=== PATIENT | female | born 1955 | race Caucasian/White ===

== ENCOUNTER 2016-05-25 15:04 | Emergency (ER) | payer BC ==
[2016-05-25 15:26] VITALS: BP 145/82; PULSE 96; O2SAT 96
--- NOTE | 2016-05-25 16:03 | ERPHSYRPT ---
- History of Present Illness Time Seen by Provider: 05/25/16 15:12 Source: patient Patient Subjective Stated Complaint: PT REPORTS WAS DX WITH ALLERGIES LAST WEEK AT THE [facility] SHE IS STILL COUGHING UP YELLOW SPUTUM AT TIMES ET HAS A SALTY BAD TASTE IN HER MOUTH-REPORTS HEADACHE THAT IS NORMAL FOR HER Triage Nursing Assessment: PT PINK WARM ET DRY-LUNGS DIMINISHED NO RETRACTIONS NOTED-PT TALKATIVE WITH EASE-NO COUGH NOTED DURING TRIAGE Physician History: CC: sinus drng/cough HX: 61 y/o smoker who is a patient of Dr Figueroa. She has cough, sinus drng, salty taste in her mouth for a week. Not better with allergy treatment. No fever. Timing/Duration: week(s) (1) Allergies/Adverse Reactions: No Known Drug Allergies Allergy (Verified 05/25/16 15:26) Home Medications: Alprazolam 0.5 mg PO TID 05/25/16 [History] Escitalopram Oxalate [Lexapro] 20 mg PO DAILY 05/25/16 [History] Ezetimibe 10 mg [Zetia 10 MG] 10 mg PO DAILY 05/25/16 [History] Hx Tetanus, Diphtheria Vaccination/Date Given: No Hx Influenza Vaccination/Date Given: Yes (2015) Hx Pneumococcal Vaccination/Date Given: No Immunizations Up to Date: Yes - Review of Systems Constitutional: No Fever, No Chills Eyes: No Symptoms Ears, Nose, & Throat: Nose Congestion, Sinus Drainage Respiratory: Cough Abdominal/Gastrointestinal: No Vomiting Skin: No Rash Neurological: No Headache - Past Medical History Pertinent Past Medical History: Yes Neurological History: Migraines ENT History: No Pertinent History Cardiac History: High Cholesterol Respiratory History: Bronchitis Endocrine Medical History: No Pertinent History Musculoskeletal History: No Pertinent History GI Medical History: Hemorrhoids History: No Pertinent History Psycho-Social History: Anxiety, Depression Female Reproductive Disorders: Abnormal Uterine Bleeding - Past Surgical History Past Surgical History: Yes Neuro Surgical History: No Pertinent History Cardiac: No Pertinent History Respiratory: No Pertinent History Gastrointestinal: No Pertinent History Genitourinary: No Pertinent History Musculoskeletal: No Pertinent History Female Surgical History: Hysterectomy Other Surgical History: d & c - Social History Smoking Status: Current every day smoker How long have you smoked: 40 YEARS Exposure to second hand smoke: Yes Drug Use: none Patient Lives Alone: No - Female History Hx Now: No - Nursing Vital Signs Nursing Vital Signs: Initial Vital Signs Temperature 98.2 F Temperature Source Oral Pulse Rate 96 Respiratory Rate 22 Blood Pressure [Right Arm] 145/82 Pain Intensity 8 - Physical Exam General Appearance: alert Eye Exam: PERRL/EOMI Ears, Nose, Throat Exam: TMs normal, pharyngeal erythema, other (bilateral maxiallary sinus tenderness) Neck Exam: normal inspection, non-tender, supple Respiratory Exam: normal breath sounds Cardiovascular Exam: regular rate/rhythm Gastrointestinal/Abdomen Exam: soft, No tenderness, No distention Extremity Exam: normal inspection, normal range of motion Neurologic Exam: alert, oriented x 3, cooperative, sensation nml, No motor deficits Skin Exam: warm, dry, No rash SpO2 Interpretation: normal SpO2: 96 Oxygen Delivery: Room Air - Course Nursing assessment & vital signs reviewed: Yes - Progress Progress Note: 05/25/16 16:01 Will Rx as sinusitis. Advise cxr if not better in one week. Inst given. Counseled pt/family regarding: diagnosis, need for follow-up - Departure Time of Disposition: 16:02 Departure Disposition: Home Clinical Impression: Acute sinusitis Qualifiers: Sinusitis location: maxillary Recurrence: non-recurrent Qualified Code(s): J01.00 - Acute maxillary sinusitis, unspecified Condition: Stable Critical Care Time: No Referrals: LUIS E FIGUEROA [Primary Care Provider] - Instructions: Cough -- Adult, Sinusitis Additional Instructions: Rx ceftin. Rx albuterol. Follow up with Dr Figueroa if not better in one week. Avoid smoke exposure. Prescriptions: Albuterol Sulfate [Albuterol Sulfate Hfa] 2 puff IH Q4-6HPRN PRN #1 [id number] PRN Reason: cough or wheeze Cefuroxime Axetil 500 mg [Ceftin 500 mg] 500 mg PO BID #20 tablet
== END 2016-05-25 16:13 | disposition home or self-care (01) ==
LOC: ED 15:04
DX: J01.00 Acute maxillary sinusitis, unspecified (principal)
CPT/HCPCS: 99281; 99283

== ENCOUNTER 2016-10-25 08:56 | Emergency (ER) | payer BC ==
[2016-10-25 09:03] VITALS: BP 151/89; PULSE 93; O2SAT 96
[2016-10-25] MEDS ORDERED: Rocephin 1000 MG INJ IM ONE (09:07)
[2016-10-25] MEDS ORDERED: Rocephin 1000 MG INJ ONE (09:13)
[2016-10-25] MEDS ORDERED: XYLOCAINE 1% HCL 20 ML MDV ONE (09:14)
--- NOTE | 2016-10-25 09:14 | ERPHSYRPT ---
- History of Present Illness Time Seen by Provider: 10/25/16 09:08 Source: patient Exam Limitations: no limitations Patient Subjective Stated Complaint: pt reports headache-bilateral ear ache- productive cough with clear to yellow sputum-dry mouth Triage Nursing Assessment: pt pink warm et dry-wet cough noted-lungs diminished- no retractions-resp nonlabored-pupils reactive Physician History: 61-year-old female came to the emergency room with complaining of 5 days history of sinus congestion, right-sided ear pain, right-sided occipital headache, dry mouth, pharyngeal congestion. She denies any fever, but complaining of chills last night. She visited her primary care physician 3 days ago and was given some type of shot for allergies. Timing/Duration: gradual onset ENT Location: ear (R) Prearrival Treatment: prescription meds Associated Symptoms: ear pain (R), jaw pain, nasal congestion/drainage, sinus infection, sore throat Allergies/Adverse Reactions: No Known Drug Allergies Allergy (Verified 10/25/16 08:57) Home Medications: Alprazolam 0.5 mg PO TID 05/25/16 [History] Escitalopram Oxalate [Lexapro] 20 mg PO DAILY 05/25/16 [History] Ezetimibe 10 mg [Zetia 10 MG] 10 mg PO DAILY 05/25/16 [History] Hx Tetanus, Diphtheria Vaccination/Date Given: No Hx Influenza Vaccination/Date Given: Yes (2015) Hx Pneumococcal Vaccination/Date Given: No Immunizations Up to Date: Yes - Review of Systems Constitutional: Chills Ears, Nose, & Throat: Nose Congestion, Throat Pain, Hoarse Respiratory: Cough Cardiac: No Symptoms Abdominal/Gastrointestinal: No Symptoms Genitourinary Symptoms: No Symptoms Musculoskeletal: No Symptoms - Past Medical History Pertinent Past Medical History: Yes Neurological History: Migraines ENT History: No Pertinent History Cardiac History: High Cholesterol Respiratory History: Bronchitis Endocrine Medical History: No Pertinent History Musculoskeletal History: No Pertinent History GI Medical History: Hemorrhoids History: No Pertinent History Psycho-Social History: Anxiety, Depression Female Reproductive Disorders: Abnormal Uterine Bleeding - Past Surgical History Past Surgical History: Yes Neuro Surgical History: No Pertinent History Cardiac: No Pertinent History Respiratory: No Pertinent History Gastrointestinal: No Pertinent History Genitourinary: No Pertinent History Musculoskeletal: No Pertinent History Female Surgical History: Hysterectomy Other Surgical History: d & c - Social History Smoking Status: Current every day smoker How long have you smoked: 40 YEARS Exposure to second hand smoke: No Drug Use: none Patient Lives Alone: No - Female History Hx Last Menstrual Period: hysterectomy Hx Now: No - Nursing Vital Signs Nursing Vital Signs: Initial Vital Signs Temperature 97.7 F 10/25/16 08:58 Pulse Rate 93 H 10/25/16 08:58 Respiratory Rate 20 10/25/16 08:58 Blood Pressure 151/89 10/25/16 08:58 O2 Sat by Pulse Oximetry 96 10/25/16 08:58 Pain Scale Pain Intensity 9 - Physical Exam General Appearance: no apparent distress Eye Exam: bilateral eye: normal inspection, PERRL, EOMI Ear Exam: bilateral ear: auricle normal, TM normal Nasal Exam: normal inspection, sinus tenderness Throat Exam: moist mucus membranes Neck Exam: normal inspection Cardiovascular/Respiratory Exam: chest non-tender Abdominal Exam: non-tender Neurologic Exam: alert, oriented x 3 Skin Exam: normal color SpO2 Interpretation: normal SpO2: 96 Oxygen Delivery: Room Air - Course Nursing assessment & vital signs reviewed: Yes Ordered Tests: Medication Summary Discontinued Medications Generic Name Dose Route Start Last Admin Trade Name Freq PRN Reason Stop Dose Admin Ceftriaxone Sodium 1,000 mg 10/25/16 09:07 Rocephin 1000 Mg Inj IM 10/25/16 09:08 STAT ONE - Progress Progress: unchanged Counseled pt/family regarding: diagnosis, need for follow-up - Departure Time of Disposition: 09:14 Departure Disposition: Home Clinical Impression: Acute sinusitis Qualifiers: Sinusitis location: pansinusitis Recurrence: recurrent Qualified Code(s): J01.41 - Acute recurrent pansinusitis Condition: Stable Critical Care Time: No Referrals: LUIS E FIGUEROA [Primary Care Provider] - Instructions: Sinusitis Additional Instructions: UPPER RESPIRATORY INFECTIONS 1. The following suggestions can aid in recovery and to minimize symptoms: A. Increase fluid intake. B. Acetaminophen or Ibuprofen as directed. C. Avoid smoking environments as this will increase the risk of developing pneumonia. D. For children, may use a cool mist vaporizer in the child's room. 2. Contact your Family Physician if you note: A. Persisten fever >103 for more than 3 days B. Breathing difficulty C. Productive cough of yellow/green sputum D. Illness greater than 7 days E. Persistent vomiting F. Stiff neck Please follow the instructions given to you. Please take your medication as prescribed if given. If symptoms recur or get worse, come back to the emergency room if you cannot reach your primary care physician, or call your primary care physician for an appointment. Again if your symptoms get worse, come back to the emergency room. Thanks for visiting emergency room, and let us take care of you. Prescriptions: Azithromycin [Zithromax Tri-Junior 500 mg] 500 mg PO DAILY #3 tablet
== END 2016-10-25 09:30 | disposition home or self-care (01) ==
LOC: ED 08:56
DX: J01.41 Acute recurrent pansinusitis (principal)
CPT/HCPCS: 96372; 99284; J0696

== ENCOUNTER 2017-01-03 16:19 | Emergency (ER) | payer BC ==
--- NOTE | 2017-01-03 16:54 | ERPHSYRPT ---
- History of Present Illness Time Seen by Provider: 01/03/17 16:50 Source: patient Exam Limitations: no limitations Patient Subjective Stated Complaint: states tongue swelling up, states things taste salty, sore4 throat hurts to swallow lips swollen also Triage Nursing Assessment: pt alert and oriented x3, behavior appropriate for age, gait is steady , ambulates well, little buds swollen up on tongue, throat is red , pulse sequal bialteral radius, lung sounds clear diminished, skin warm dry and intact. Physician History: mild ache and painful swallowing and tongue for months, no fever, hx smoking, no drooling, speech fluent, no shortness of breath or stridor Allergies/Adverse Reactions: No Known Drug Allergies Allergy (Verified 10/25/16 08:57) Home Medications: Alprazolam 0.5 mg PO TID 05/25/16 [History] Escitalopram Oxalate [Lexapro] 20 mg PO DAILY 05/25/16 [History] Ezetimibe 10 mg [Zetia 10 MG] 10 mg PO DAILY 05/25/16 [History] Hx Tetanus, Diphtheria Vaccination/Date Given: Yes Hx Influenza Vaccination/Date Given: No Hx Pneumococcal Vaccination/Date Given: No Immunizations Up to Date: Yes - Review of Systems Constitutional: No Fever Eyes: No Symptoms Ears, Nose, & Throat: Mouth Pain, Throat Pain, No Throat Swelling, No Hoarse, No Stridor Respiratory: No Symptoms Skin: No Symptoms Neurological: No Symptoms - Past Medical History Pertinent Past Medical History: Yes Neurological History: Migraines ENT History: No Pertinent History Cardiac History: High Cholesterol Respiratory History: Bronchitis Endocrine Medical History: No Pertinent History Musculoskeletal History: No Pertinent History GI Medical History: Hemorrhoids History: No Pertinent History Psycho-Social History: Anxiety, Depression Female Reproductive Disorders: Abnormal Uterine Bleeding - Past Surgical History Past Surgical History: Yes Neuro Surgical History: No Pertinent History Cardiac: No Pertinent History Respiratory: No Pertinent History Gastrointestinal: No Pertinent History Genitourinary: No Pertinent History Musculoskeletal: No Pertinent History Female Surgical History: Hysterectomy Other Surgical History: d & c - Social History Smoking Status: Current every day smoker How long have you smoked: 40 YEARS Exposure to second hand smoke: No Drug Use: none Patient Lives Alone: No - Female History Hx Now: No - Nursing Vital Signs Nursing Vital Signs: Initial Vital Signs Temperature 98.4 F 01/03/17 16:20 Pulse Rate 102 H 01/03/17 16:20 Respiratory Rate 20 01/03/17 16:20 Blood Pressure 134/85 01/03/17 16:20 O2 Sat by Pulse Oximetry 95 01/03/17 16:20 Pain Scale Pain Intensity 9 - Physical Exam General Appearance: no apparent distress Eye Exam: PERRL/EOMI, eyes nml inspection Ears, Nose, Throat Exam: moist mucous membranes, pharyngeal erythema Neck Exam: normal inspection Respiratory Exam: No respiratory distress Neurologic Exam: alert, oriented x 3, cooperative Skin Exam: warm, dry SpO2: 95 Oxygen Delivery: Room Air - Course Nursing assessment & vital signs reviewed: Yes - Progress Progress: unchanged Progress Note: 01/03/17 16:52 differential d/w pt as cancer Discussed with : Roderick Will see patient in: office Counseled pt/family regarding: need for follow-up, smoking cessation - Departure Time of Disposition: 16:53 Departure Disposition: Home Clinical Impression: Sore throat Condition: Stable Critical Care Time: No Referrals: LUIS E FIGUEROA [Primary Care Provider] - Additional Instructions: pen vk, motrin, oral fluids, see your doctor, return if worse
[2017-01-03 17:07] VITALS: BP 111/80; PULSE 90; O2SAT 94
== END 2017-01-03 17:14 | disposition home or self-care (01) ==
LOC: ED 16:19
DX: J02.9 Acute pharyngitis, unspecified (principal); E78.00 Pure hypercholesterolemia, unspecified
CPT/HCPCS: 99281

== ENCOUNTER 2021-01-25 12:08 | Emergency (ER) | payer MEDICARE ==
[2021-01-25 13:20] LABS: Absolute Neutrophil Ct (ANC) 5.26 (1.4-6.9); BASOPHIL % 0.1 % (0.0-0.4); Basophil (Absolute #) 0.01 (0-0.4); Eosinophil % 1.6 % (0.00-5.0); Eosinophil (Absolute #) 0.13 (0-0.5); Hematocrit 49.4 % (35-47); Lymphocyte (Absolute #) 2.31 (1.0-4.6); Lymphocytes % 28.3 % (24.0-44.0); Mean Cell Volume 97.8 fl (78-100); Mean Corpuscular Hemoglobin 31.7 pg (26-32); Mean Corpuscular Hgb Concent. 32.4 g/dl (32-36); Mean Platelet Volume 8.9 fl (7.5-11.0); Monocyte (Absolute #) 0.44 (0.0-1.3); Monocytes % 5.4 % (0.0-12.0); Neutrophil % 64.6 % (36.0-66.0); Platelet Count 282 K/mm3 (150-450); Red Blood Count 5.05 M/mm3 (4.1-5.4); Red Cell Distribution Width 13.4 % (11.5-14.0); White Blood Count 8.2 K/mm3 (4.0-10.5)
[2021-01-25] MEDS ORDERED: NORCO 5/325 MG ONE (13:30)
[2021-01-25] MEDS: NORCO 5/325 MG PO ONE ×2 (13:31→13:34)
[2021-01-25 13:34] LABS: ALBUMIN 4.5 g/dL (3.5-5.0); ALKALINE PHOSPHATASE 89 U/L (38-126); ANION GAP 13.2 MEQ/L (5-15); BLOOD UREA NITROGEN 23 mg/dL (7-17); CHLORIDE 98 mmol/L (98-107); Calcium 9.4 mg/dL (8.4-10.2); Carbon Dioxide 30 mmol/L (22-30); Creatinine 1 0.78 mg/dL (0.52-1.04); EST GLOMERULAR FILTRATION RATE > 60.0 ML/MIN; Glucose 150 mg/dL (74-106); LIPASE 104 U/L (23-300); Potassium 4.2 mmol/L (3.5-5.1); SGOT/AST 27 U/L (14-36); SGPT/ALT 23 U/L (0-35); SODIUM 137 mmol/L (137-145); Total Protein 7.4 g/dL (6.3-8.2)
--- NOTE | 2021-01-25 13:49 | ERPHSYRPT ---
- History of Present Illness Time Seen by Provider: 01/25/21 12:11 Historian: patient Exam Limitations: no limitations Patient Subjective Stated Complaint: Abdominal/back pain Triage Nursing Assessment: Patient ambulated back to ED and transferred self to bed. Patient A+O X3. Patient's skin pink, warm and dry. Patient complains of abdominal pain and mid back pain that started yesterday. Patient denies N/V or diarrhea. Patient states she has been coughing recently and currently being tx for URI. Physician History: 65 years old female presented in the ER with chief complaint of lower abdominal pain since yesterday, initially intermittent and now constant, moderate intensity, dull cramping, without any significant aggravating or relieving factors and no associated nausea vomiting diarrhea or constipation. No fever or chills reported. She has been recently treated for bronchitis with doxycycline. Timing/Duration: yesterday, constant, gradual onset, worse Activities at Onset: rest Quality: aching, cramping Abdominal Pain Onset Location: RLQ, LLQ, periumbilical Pain Radiation: no radiation Severity of Pain-Max: moderate Severity of Pain-Current: mild Modifying Factors: Improves With: nothing Associated Symptoms: denies symptoms Previous symptoms: no prior history Allergies/Adverse Reactions: No Known Drug Allergies Allergy (Verified 01/25/21 12:25) Home Medications: ALPRAZolam [Alprazolam] 0.5 mg PO TID 05/25/16 [History] Escitalopram Oxalate [Lexapro] 20 mg PO DAILY 05/25/16 [History] Ezetimibe 10 mg [Zetia 10 MG] 10 mg PO DAILY 05/25/16 [History] Hx Tetanus, Diphtheria Vaccination/Date Given: Yes Hx Influenza Vaccination/Date Given: Yes Hx Pneumococcal Vaccination/Date Given: No Immunizations Up to Date: Yes Travel Risk - International Travel Have you traveled outside of the country in past 3 weeks: No - Coronavirus Screening Are you exhibiting any of the following symptoms?: No Close contact with a COVID-19 positive Pt in past 14-21 Days: No - Vaccine Status Have you recieved a Covid-19 vaccination: Yes 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 - Vaccination Dates Date of 2cond Vaccination (if applicable): April 2020 - Review of Systems Constitutional: No Symptoms Eyes: No Symptoms Ears, Nose, & Throat: No Symptoms Respiratory: Cough Cardiac: No Symptoms Abdominal/Gastrointestinal: Abdominal Pain Genitourinary Symptoms: No Symptoms Musculoskeletal: Back Pain (Chronic) Skin: No Symptoms Neurological: No Symptoms Psychological: No Symptoms Endocrine: No Symptoms Hematologic/Lymphatic: No Symptoms Immunological/Allergic: No Symptoms - Past Medical History Pertinent Past Medical History: Yes Neurological History: Migraines ENT History: No Pertinent History Cardiac History: High Cholesterol Respiratory History: Bronchitis Endocrine Medical History: No Pertinent History Musculoskeletal History: No Pertinent History GI Medical History: Hemorrhoids History: No Pertinent History Psycho-Social History: Anxiety, Depression Female Reproductive Disorders: Abnormal Uterine Bleeding - Past Surgical History Past Surgical History: Yes Neuro Surgical History: No Pertinent History Cardiac: No Pertinent History Respiratory: No Pertinent History Gastrointestinal: No Pertinent History Genitourinary: No Pertinent History Musculoskeletal: No Pertinent History Female Surgical History: Hysterectomy Other Surgical History: d & c - Social History Smoking Status: Current every day smoker How long have you smoked: 40 YEARS Exposure to second hand smoke: No Drug Use: none Patient Lives Alone: No - Female History Hx Now: No - Nursing Vital Signs Nursing Vital Signs: Initial Vital Signs Temperature 97.9 F 01/25/21 12:28 Pulse Rate 95 H 01/25/21 12:28 Respiratory Rate 18 01/25/21 12:28 Blood Pressure 162/99 01/25/21 12:28 O2 Sat by Pulse Oximetry 94 L 01/25/21 12:28 Pain Scale Pain Intensity 4 - Physical Exam General Appearance: no apparent distress, alert Eye Exam: PERRL/EOMI, eyes nml inspection Ears, Nose, Throat Exam: normal ENT inspection, TMs normal, pharynx normal, moist mucous membranes Neck Exam: normal inspection, non-tender, supple, full range of motion Respiratory Exam: normal breath sounds, lungs clear Cardiovascular Exam: regular rate/rhythm, normal heart sounds Gastrointestinal/Abdomen Exam: soft, normal bowel sounds, tenderness (Lower abdomen/periumbilical area with no rebound tenderness or guarding.) Back Exam: normal inspection, normal range of motion, No CVA tenderness Extremity Exam: normal inspection, normal range of motion Neurologic Exam: alert, oriented x 3, cooperative Skin Exam: normal color SpO2 Interpretation: normal SpO2: 93 O2 Delivery: Room Air Ordered Tests: Active Orders 24 hr Category Date Time Status IV Insertion STAT Care 01/25/21 12:30 Active ABDOMEN AND PELVIS W/0 CONTRAS [CT] Stat Exams 01/25/21 13:22 Ordered CBC W DIFF Stat Lab 01/25/21 12:20 Completed CMP Stat Lab 01/25/21 12:20 Completed LIPASE Stat Lab 01/25/21 12:20 Completed UA W/RFX UR CULTURE Stat Lab 01/25/21 12:31 Received Medication Summary Discontinued Medications Generic Name Dose Route Start Last Admin Trade Name Freq PRN Reason Stop Dose Admin Hydrocodone Bitart/Acetaminophen 1 tab 01/25/21 13:22 01/25/21 13:34 Hydrocodone/Apap 5/325 Mg Tablet PO 01/25/21 13:23 Not Given STAT ONE Hydrocodone Bitart/Acetaminophen Confirm 01/25/21 13:30 Hydrocodone/Apap 5/325 Mg Tablet Administered 01/25/21 13:31 Dose 1 tab .ROUTE .STK-MED ONE Lab/Rad Data: Laboratory Result Diagrams 01/25/21 12:20 01/25/21 12:20 Laboratory Results 01/25/21 01/25/21 Range/Units 12:20 12:20 WBC 8.2 (4.0-10.5) K/mm3 RBC 5.05 (4.1-5.4) M/mm3 Hgb 16.0 (12.0-16.0) gm/dl Hct 49.4 H (35-47) % MCV 97.8 (78-100) fl MCH 31.7 (26-32) pg MCHC 32.4 (32-36) g/dl RDW 13.4 (11.5-14.0) % Plt Count 282 (150-450) K/mm3 MPV 8.9 (7.5-11.0) fl Gran % 64.6 (36.0-66.0) % Eos # (Auto) 0.13 (0-0.5) Absolute Lymphs (auto) 2.31 (1.0-4.6) Absolute Monos (auto) 0.44 (0.0-1.3) Lymphocytes % 28.3 (24.0-44.0) % Monocytes % 5.4 (0.0-12.0) % Eosinophils % 1.6 (0.00-5.0) % Basophils % 0.1 (0.0-0.4) % Absolute Granulocytes 5.26 (1.4-6.9) Basophils # 0.01 (0-0.4) Sodium 137 (137-145) mmol/L Potassium 4.2 (3.5-5.1) mmol/L Chloride 98 (98-107) mmol/L Carbon Dioxide 30 (22-30) mmol/L Anion Gap 13.2 (5-15) MEQ/L BUN 23 H (7-17) mg/dL Creatinine 0.78 (0.52-1.04) mg/dL Estimated GFR > 60.0 ML/MIN Glucose 150 H (74-106) mg/dL Calcium 9.4 (8.4-10.2) mg/dL Total Bilirubin 0.40 (0.2-1.3) mg/dL AST 27 (14-36) U/L ALT 23 (0-35) U/L Alkaline Phosphatase 89 (38-126) U/L Serum Total Protein 7.4 (6.3-8.2) g/dL Albumin 4.5 (3.5-5.0) g/dL Lipase 104 (23-300) U/L - Progress Progress: improved Progress Note: 01/25/21 15:58 She is given symptomatic treatment for pain, on reevaluation her pain is almost completely resolved. Negative acute abdomen work-up including CT abdomen pe lvis. Tylenol/ibuprofen as needed. Outpatient follow-up. Discussed signs symptoms of worsening needing return to ER which she seems understanding. Stable for discharge. Counseled pt/family regarding: lab results, diagnosis, need for follow-up, rad results, smoking cessation - Departure Departure Disposition: Home Clinical Impression: Lower abdominal pain Condition: Stable Critical Care Time: No Referrals: TORRIE MURPHY NP [Primary Care Provider] - Follow up/PCP as directed (In 2 days for reevaluation) Instructions: Acute Abdomen (Belly Pain), Adult (DC) Additional Instructions: Take Tylenol/ibuprofen as needed. Follow-up with primary care for reevaluation. Return to ER for any worsening.
[2021-01-25 15:08] VITALS: O2SAT 93
[2021-01-25 16:14] VITALS: BP 140/96; PULSE 80
[2021-01-25 16:30] LABS: Appearance CLEAR (CLEAR); Bilirubin NEGATIVE (NEGATIVE); Blood SMALL Ery/ul (0-5); Glucose NEGATIVE (NEGATIVE); Ketones NEGATIVE (NEGATIVE); Leukocyte Esterase NEGATIVE (NEGATIVE); Mucus SLIGHT /HPF (NEGATIVE); Nitrite NEGATIVE (NEGATIVE); Protein,Urine Dip NEGATIVE (Negative); Specific Gravity 1.005 (1.005-1.025); Urobilinogen NEGATIVE mg/dL (0-1)
--- NOTE | 2021-01-25 19:32 | XRAY ---
Indication: Abdomen pain 2 days. Multiple contiguous axial images obtained through the abdomen and pelvis without contrast. Comparison: None. Lung bases demonstrates pulmonary emphysema, minimal scattered fibrosis/scarring, and tiny left lower lobe calcified granuloma. No infiltrate or effusion. Heart not enlarged. Small hiatal hernia. Stomach is mildly distended with food/fluid. Stomach and bowel loops appear nonobstructed. Normal appendix. Scattered sigmoid diverticulosis without diverticulitis. Gallbladder contracted without stones. Hysterectomy reported. No free fluid/air. Remaining liver, pancreas, spleen, adrenal glands, kidneys, ureters, and bladder are unremarkable for noncontrast exam. Moderate scattered aortoiliac calcifications without AAA. Osseous structures intact with minimal 1-2 mm L4 anterolisthesis and 1.5 cm L1 vertebral hemangioma. Impression: 1. Pulmonary emphysema, old granulomatous disease, small hiatal hernia, sigmoid diverticulosis, arteriosclerotic disease, and chronic bony findings. 2. Remaining CT abdomen/pelvis without contrast exam is negative. Comment: Preliminary interpretation made by [facility]. No critical discrepancy.
== END 2021-01-25 16:20 | disposition home or self-care (01) ==
LOC: ED 12:08
DX: R10.30 Lower abdominal pain, unspecified (principal); E78.5 Hyperlipidemia, unspecified; Z72.0 Tobacco use
CPT/HCPCS: 36000; 36415; 74176; 80053; 81001; 83690; 85025; 99284; A9270-GY

== ENCOUNTER 2022-01-12 10:33 | Observation (INO) | payer MEDICARE ==
[2022-01-12] MEDS ORDERED: PROVENTIL 2.5 MG/3 ML NEB IH ONE ×2 (11:14→11:59)
[2022-01-12] MEDS ORDERED: solu-MEDROL 125 MG, Sterile H2O 10 ml 2 ML IV ONE ×2 (11:14)
[2022-01-12] MEDS ORDERED: ROCEPHIN 2 Gm-D5w 50ML BAG** 2 G/50 ML IVPB IV STA (11:20)
[2022-01-12] MEDS ORDERED: Zithromax 500 MG/ 250 ML NaCl Premix 500 MG/250 ML IVPB IV STA (11:22)
--- NOTE | 2022-01-12 11:23 | ERPHSYRPT ---
- History of Present Illness Time Seen by Provider: 01/12/22 11:29 Source: patient Exam Limitations: no limitations Physician History: Patient is a 66-year-old female with a history of COPD on oxygen via nasal cannula at night presents to our emergency department for evaluation of progressive shortness of breath and a cough. Upon arrival to our ED patient was observed to be hypoxic. No trauma. No fever. Patient is a current smoker. Symptoms are progressive. Symptoms are moderate in intensity. No specific worsening improving factors. Patient denies a history of COPD exacerbation. Patient had a heart valve replacement approximately 4 months ago. Patient de nies chest pain. She voices no other complaints concerns at this time. Portions of this note were created with voice recognition technology. There may be grammatical, spelling, punctuation or sound alike errors Timing/Duration: yesterday Activities at Onset: activity Severity of Dyspnea-Max: moderate Severity of Dyspnea-Current: moderate Possible Cause: occasional episodes Modifying Factors: Improves With: oxygen, other (Activity worsens symptoms) Associated Symptoms: cough, No chest pain/discomfort, No leg swelling Allergies/Adverse Reactions: No Known Drug Allergies Allergy (Verified 01/12/22 10:57) Home Medications: ALPRAZolam [Alprazolam] 0.5 mg PO TID 05/25/16 [History] Escitalopram Oxalate [Lexapro] 20 mg PO DAILY 05/25/16 [History] Ezetimibe 10 mg [Zetia 10 MG] 10 mg PO DAILY 05/25/16 [History] Hx Tetanus, Diphtheria Vaccination/Date Given: Yes Hx Influenza Vaccination/Date Given: Yes Hx Pneumococcal Vaccination/Date Given: No Travel Risk - Vaccine Status Have you recieved a Covid-19 vaccination: Yes Radio Maintainer: Moderna - Vaccination Dates Date of 2cond Vaccination (if applicable): April 2020 - Review of Systems Constitutional: No Symptoms, No Fever, No Chills Eyes: No Symptoms Ears, Nose, & Throat: No Symptoms Respiratory: No Symptoms, No Cough, No Dyspnea Cardiac: No Symptoms, No Chest Pain, No Edema, No Syncope Abdominal/Gastrointestinal: No Symptoms, No Abdominal Pain, No Nausea, No Vomiting, No Diarrhea Genitourinary Symptoms: No Symptoms, No Dysuria Musculoskeletal: No Symptoms, No Back Pain, No Neck Pain Skin: No Symptoms, No Rash Neurological: No Symptoms, No Dizziness, No Focal Weakness, No Sensory Changes Psychological: No Symptoms Endocrine: No Symptoms Hematologic/Lymphatic: No Symptoms Immunological/Allergic: No Symptoms All Other Systems: Reviewed and Negative - Past Medical History Pertinent Past Medical History: Yes Neurological History: Migraines ENT History: No Pertinent History Cardiac History: High Cholesterol Respiratory History: Bronchitis Endocrine Medical History: No Pertinent History Musculoskeletal History: No Pertinent History GI Medical History: Hemorrhoids History: No Pertinent History Psycho-Social History: Anxiety, Depression Female Reproductive Disorders: Abnormal Uterine Bleeding - Past Surgical History Past Surgical History: Yes Neuro Surgical History: No Pertinent History Cardiac: No Pertinent History Respiratory: No Pertinent History Gastrointestinal: No Pertinent History Genitourinary: No Pertinent History Musculoskeletal: No Pertinent History Female Surgical History: Hysterectomy Other Surgical History: d & c - Social History Smoking Status: Current every day smoker How long have you smoked: 40 YEARS Exposure to second hand smoke: No Drug Use: none Patient Lives Alone: No - Nursing Vital Signs Nursing Vital Signs: Initial Vital Signs Temperature 97.8 F 01/12/22 10:34 Pulse Rate 89 01/12/22 10:34 Respiratory Rate 20 01/12/22 10:34 Blood Pressure 137/82 01/12/22 10:34 O2 Sat by Pulse Oximetry 89 L 01/12/22 10:34 Pain Scale Pain Intensity 0 - Physical Exam General Appearance: no apparent distress, alert Eye Exam: PERRL/EOMI, eyes nml inspection, scleral icterus Ears, Nose, Throat Exam: hearing grossly normal, normal ENT inspection, normal pharynx Neck Exam: normal inspection, supple, full range of motion Respiratory Exam: airway intact, rhonchi, wheezing, No lungs clear Cardiovascular/Chest Exam: normal heart sounds, regular rate/rhythm Abdominal/Gastrointestinal Exam: soft, No tenderness, No distention, No mass Extremity Exam: non-tender, normal range of motion, normal inspection, no calf tenderness, no pedal edema Neurologic Exam: alert, oriented x 3, cooperative, hand funnel coater II-XII nml as tested, sensation nml, No motor deficits Skin Exam: normal color, warm, No dry Lymphatic Exam: No adenopathy SpO2 Interpretation: normal SpO2: 96 O2 Delivery: Nasal Cannula - Course Nursing assessment & vital signs reviewed: Yes - Radiology Exams Chest X-ray Interpretation: Teleradiologist Report (Nonacute chest with chronic features) Ordered Tests: Active Orders 24 hr Category Date Time Status Block Mechanic STAT Care 01/12/22 11:14 Active EKG-ER Only STAT Care 01/12/22 11:14 Active IV Insertion STAT Care 01/12/22 11:14 Active Pulse Oximetry (ED) STAT Care 01/12/22 11:14 Active CHEST 1 VIEW (PORTABLE) Stat Exams 01/12/22 11:14 Completed BLOOD CULTURE Stat Lab 01/12/22 11:35 Received CBC W DIFF Stat Lab 01/12/22 11:14 Completed CMP Stat Lab 01/12/22 11:33 Completed TROPONIN Q4H Lab 01/12/22 11:33 Completed TROPONIN Q4H Lab 01/12/22 15:15 Ordered TROPONIN Q4H Lab 01/12/22 19:15 Ordered Respiratory Therapy Assessment DAILY RT 01/12/22 12:04 Active Medication Summary Discontinued Medications Generic Name Dose Route Start Last Admin Trade Name Freq PRN Reason Stop Dose Admin Albuterol Sulfate 2.5 mg 01/12/22 11:14 01/12/22 11:59 Albuterol Sulfate 2.5 Mg/3 Ml Neb IH 01/12/22 11:15 2.5 mg STAT ONE Administration Albuterol Sulfate Confirm 01/12/22 11:59 Albuterol Sulfate 2.5 Mg/3 Ml Neb Administered 01/12/22 12:00 Dose 2.5 mg IH .STK-MED ONE Methylprednisolone Sodium 0 mg 01/12/22 11:14 01/12/22 11:45 Succinate 125 mg/ Sterile IV 01/12/22 11:15 125 mg Water 2 ml STAT ONE Administration Ceftriaxone Sodium/Dextrose 2 g in 50 mls @ 100 mls/hr 01/12/22 11:20 01/12/22 12:19 Rocephin 2 Gm-D5w 50ml Bag IV 01/12/22 11:49 Infused STAT STA Infusion Azithromycin 500 mg in 250 mls @ 250 mls/hr 01/12/22 11:22 01/12/22 12:12 Zithromax 500 Mg/ 250 Ml Nacl Premix IV 01/12/22 12:21 250 mls/hr STAT STA 250 mls/hr Administration Azithromycin Confirm 01/12/22 11:43 Zithromax 500 Mg/ 250 Ml Nacl Premix Administered 01/12/22 11:44 Dose 500 mg in 250 mls @ ud IV .STK-MED ONE Ceftriaxone Sodium/Dextrose Confirm 01/12/22 11:43 Rocephin 2 Gm-D5w 50ml Bag Administered 01/12/22 11:44 Dose 2 g in 50 mls @ ud IV .STK-MED ONE Methylprednisolone Sodium Succinate Confirm 01/12/22 11:43 Methylprednis Sod Succ 125 Mg/2 Ml Vial Administered 01/12/22 11:44 Dose 125 mg .ROUTE .STK-MED ONE Sterile Water Confirm 01/12/22 11:43 Water For Injection,Sterile 10 Ml Vial Administered 01/12/22 11:44 Dose 10 ml IJ .STK-MED ONE Lab/Rad Data: Laboratory Result Diagrams 01/12/22 11:14 01/12/22 11:33 Laboratory Results 01/12/22 01/12/22 01/12/22 Range/Units 11:33 11:33 11:33 WBC (4.0-10.5) x10^3/uL RBC (4.1-5.4) x10^6/uL Hgb (12.0-16.0) g/dL Hct (35-47) % MCV (78-100) fL MCH (26-32) pg MCHC (32-36) g/dL RDW (11.5-14.0) % Plt Count (150-450) x10^3/uL MPV (7.5-11.0) fL Gran % (36.0-66.0) % Immature Gran % (Auto) (0.00-0.4) % Nucleat RBC Rel Count (0.00-0.1) % Eos # (Auto) (0-0.5) x10^3/uL Immature Gran # (Auto) (0.00-0.03) x10^3u/L Absolute Lymphs (auto) (1.0-4.6) x10^3/uL Absolute Monos (auto) (0.0-1.3) x10^3/uL Absolute Nucleated RBC (0.00-0.01) x10^3u/L Lymphocytes % (24.0-44.0) % Monocytes % (0.0-12.0) % Eosinophils % (0.00-5.0) % Basophils % (0.0-0.4) % Absolute Granulocytes (1.4-6.9) x10^3/uL Basophils # (0-0.4) x10^3/uL Sodium 136 L (137-145) mmol/L Potassium 4.5 (3.5-5.1) mmol/L Chloride 101 (98-107) mmol/L Carbon Dioxide 29 (22-30) mmol/L Anion Gap 10.5 (5-15) MEQ/L BUN 11 (7-17) mg/dL Creatinine 0.62 (0.52-1.04) mg/dL Estimated GFR > 60.0 ML/MIN Glucose 98 (74-106) mg/dL Calcium 8.8 (8.4-10.2) mg/dL Total Bilirubin 0.40 (0.2-1.3) mg/dL AST 36 (14-36) U/L ALT 25 (0-35) U/L Alkaline Phosphatase 96 (38-126) U/L Troponin I 0.034 (0.000-0.034) ng/mL Serum Total Protein 8.3 H (6.3-8.2) g/dL Albumin 4.4 (3.5-5.0) g/dL Influenza Type A Ag NEGATIVE (NEGATIVE) Influenza Type B Ag NEGATIVE (NEGATIVE) RSV (PCR) NEGATIVE (Negative) SARS-CoV-2 (PCR) NEGATIVE (NEGATIVE) 01/12/22 Range/Units 11:14 WBC 7.6 (4.0-10.5) x10^3/uL RBC 4.66 (4.1-5.4) x10^6/uL Hgb 14.4 (12.0-16.0) g/dL Hct 43.4 (35-47) % MCV 93.1 (78-100) fL MCH 30.9 (26-32) pg MCHC 33.2 (32-36) g/dL RDW 13.2 (11.5-14.0) % Plt Count 207 (150-450) x10^3/uL MPV 8.7 (7.5-11.0) fL Gran % 62.6 (36.0-66.0) % Immature Gran % (Auto) 0.4 (0.00-0.4) % Nucleat RBC Rel Count 0.0 (0.00-0.1) % Eos # (Auto) 0.09 (0-0.5) x10^3/uL Immature Gran # (Auto) 0.03 (0.00-0.03) x10^3u/L Absolute Lymphs (auto) 2.21 (1.0-4.6) x10^3/uL Absolute Monos (auto) 0.49 (0.0-1.3) x10^3/uL Absolute Nucleated RBC 0.00 (0.00-0.01) x10^3u/L Lymphocytes % 29.0 (24.0-44.0) % Monocytes % 6.4 (0.0-12.0) % Eosinophils % 1.2 (0.00-5.0) % Basophils % 0.4 (0.0-0.4) % Absolute Granulocytes 4.76 (1.4-6.9) x10^3/uL Basophils # 0.03 (0-0.4) x10^3/uL Sodium (137-145) mmol/L Potassium (3.5-5.1) mmol/L Chloride (98-107) mmol/L Carbon Dioxide (22-30) mmol/L Anion Gap (5-15) MEQ/L BUN (7-17) mg/dL Creatinine (0.52-1.04) mg/dL Estimated GFR ML/MIN Glucose (74-106) mg/dL Calcium (8.4-10.2) mg/dL Total Bilirubin (0.2-1.3) mg/dL AST (14-36) U/L ALT (0-35) U/L Alkaline Phosphatase (38-126) U/L Troponin I (0.000-0.034) ng/mL Serum Total Protein (6.3-8.2) g/dL Albumin (3.5-5.0) g/dL Influenza Type A Ag (NEGATIVE) Influenza Type B Ag (NEGATIVE) RSV (PCR) (Negative) SARS-CoV-2 (PCR) (NEGATIVE) - Progress Progress: improved Air Movement: good Progress Note: Case discussed with Dr. Mendoza who accepts admission to observation. Patient reassessed. Patient breathing easier however patient will require further treatment and ongoing evaluation. Plan of care discussed with patient. She agrees to admission [facility] for further evaluation and treatment. Portions of this note were created with voice recognition technology. There may be grammatical, spelling, punctuation or sound alike errors 01/12/22 13:00 Blood Culture(s) Obtained: Yes Antibiotics given: Yes Discussed with : Julissa Will see patient in: hospital (observation) Counseled pt/family regarding: lab results, diagnosis, rad results - Departure Departure Disposition: Observation Clinical Impression: COPD exacerbation, Hypoxia, Shortness of breath Condition: Stable Critical Care Time: No Referrals: TORRIE MURPHY NP [Primary Care Provider] - Follow up/PCP as directed Instructions: Chronic Obstructive Pulmonary Disease
[2022-01-12] MEDS ORDERED: solu-MEDROL ONE (11:43)
[2022-01-12] MEDS ORDERED: ROCEPHIN 2 Gm-D5w 50ML BAG** 2 G/50 ML IVPB IV ONE (11:43)
[2022-01-12] MEDS ORDERED: Sterile H2O 10 ml IJ ONE (11:43)
[2022-01-12] MEDS ORDERED: Zithromax 500 MG/ 250 ML NaCl Premix 500 MG/250 ML IVPB IV ONE (11:43)
[2022-01-12 11:49] LABS: Absolute Neutrophil Ct (ANC) 4.76 x10^3/uL (1.4-6.9); Basophil (Absolute #) 0.03 x10^3/uL (0-0.4); Eosinophil % 1.2 % (0.00-5.0); Eosinophil (Absolute #) 0.09 x10^3/uL (0-0.5); Hematocrit 43.4 % (35-47); Hemoglobin 14.4 g/dL (12.0-16.0); Lymphocyte (Absolute #) 2.21 x10^3/uL (1.0-4.6); Mean Cell Volume 93.1 fL (78-100); Mean Corpuscular Hemoglobin 30.9 pg (26-32); Mean Corpuscular Hgb Concent. 33.2 g/dL (32-36); Mean Platelet Volume 8.7 fL (7.5-11.0); Monocyte (Absolute #) 0.49 x10^3/uL (0.0-1.3); Monocytes % 6.4 % (0.0-12.0); Neutrophil % 62.6 % (36.0-66.0); Platelet Count 207 x10^3/uL (150-450); Red Blood Count 4.66 x10^6/uL (4.1-5.4); Red Cell Distribution Width 13.2 % (11.5-14.0); White Blood Count 7.6 x10^3/uL (4.0-10.5)
[2022-01-12 12:00] LABS: ALBUMIN 4.4 g/dL (3.5-5.0); ANION GAP 10.5 MEQ/L (5-15); BLOOD UREA NITROGEN 11 mg/dL (7-17); CHLORIDE 101 mmol/L (98-107); Calcium 8.8 mg/dL (8.4-10.2); Carbon Dioxide 29 mmol/L (22-30); Creatinine 1 0.62 mg/dL (0.52-1.04); EST GLOMERULAR FILTRATION RATE > 60.0 ML/MIN; Glucose 98 mg/dL (74-106); Potassium 4.5 mmol/L (3.5-5.1); SGOT/AST 36 U/L (14-36); SGPT/ALT 25 U/L (0-35); SODIUM 136 mmol/L (137-145); Total Protein 8.3 g/dL (6.3-8.2)
[2022-01-12 12:02] LABS: ALKALINE PHOSPHATASE 96 U/L (38-126)
--- NOTE | 2022-01-12 12:03 | XRAY ---
Indication: Cough and short of breath. Comparison: July 17, 2014 Portable chest again demonstrates a few tiny scattered calcified granulomas. No focal infiltrate, consolidation, or large effusion. Heart not enlarged with interval cardiac valve replacement. Bony thorax intact again with mild osteopenia and degenerative changes. Impression: Continued nonacute chest with chronic features.
[2022-01-12 12:29] LABS: INFLUENZA A NEGATIVE (NEGATIVE); INFLUENZA B NEGATIVE (NEGATIVE); RESPIRATORY SYNCTIAL VIRUS NEGATIVE (Negative); SARS-CoV-2 Xpert Express NEGATIVE (NEGATIVE)
[2022-01-12] MEDS: PROVENTIL 2.5 MG/3 ML NEB IH SCH ×3 (14:53→22:14)
[2022-01-12] MEDS: Nicoderm CQ 21 MG TOP SCH (15:33)
[2022-01-12] MEDS: solu-MEDROL 60 MG, Sterile H2O 10 ml 2 ML IV SCH ×2 (18:21)
[2022-01-12] MEDS: xanAX 0.5 MG PO SCH (23:09)
[2022-01-13] MEDS: solu-MEDROL 60 MG, Sterile H2O 10 ml 2 ML IV SCH ×6 (00:44→13:04)
[2022-01-13] MEDS: PROVENTIL 2.5 MG/3 ML NEB IH SCH ×3 (03:32→11:40)
[2022-01-13 05:43] LABS: Hematocrit 42.1 % (35-47); Hemoglobin 13.8 g/dL (12.0-16.0); Mean Cell Volume 92.7 fL (78-100); Mean Corpuscular Hemoglobin 30.4 pg (26-32); Mean Corpuscular Hgb Concent. 32.8 g/dL (32-36); Mean Platelet Volume 8.9 fL (7.5-11.0); Platelet Count 220 x10^3/uL (150-450); Red Blood Count 4.54 x10^6/uL (4.1-5.4); Red Cell Distribution Width 12.9 % (11.5-14.0); White Blood Count 9.2 x10^3/uL (4.0-10.5)
[2022-01-13 06:07] LABS: ALBUMIN 4.3 g/dL (3.5-5.0); ALKALINE PHOSPHATASE 91 U/L (38-126); BLOOD UREA NITROGEN 14 mg/dL (7-17); CHLORIDE 100 mmol/L (98-107); Calcium 9.1 mg/dL (8.4-10.2); Carbon Dioxide 28 mmol/L (22-30); Creatinine 1 0.56 mg/dL (0.52-1.04); EST GLOMERULAR FILTRATION RATE > 60.0 ML/MIN; Glucose 170 mg/dL (74-106); Potassium 4.2 mmol/L (3.5-5.1); SGOT/AST 30 U/L (14-36); SGPT/ALT 26 U/L (0-35); SODIUM 135 mmol/L (137-145)
[2022-01-13] MEDS ORDERED: FLUZONE HIGH-DOSE QUAD 2022-23 IM ONE ×2 (08:00→15:00)
[2022-01-13 08:33] VITALS: PULSE 98
[2022-01-13] MEDS: Nicoderm CQ 21 MG TOP SCH ×2 (08:50→13:53)
[2022-01-13] MEDS: xanAX 0.5 MG PO SCH (08:52)
[2022-01-13] MEDS ORDERED: NON-FORMULARY ITEM (Escitalopram Oxalate [Lexapro] 20 MG Tablet) PO SCH (10:00)
[2022-01-13] MEDS ORDERED: ECOTRIN 81 MG PO SCH (10:00)
[2022-01-13] MEDS ORDERED: ROCEPHIN 1 Gm-D5w 50 ml Bag** 1 G/50 ML IVPB IV SCH (10:00)
[2022-01-13] MEDS ORDERED: Zetia 10 MG PO SCH (10:00)
[2022-01-13] MEDS ORDERED: NON-FORMULARY ITEM (Pravastatin Sodium [Pravastatin Sodium] 80 MG Tablet) PO SCH (10:00)
[2022-01-13] MEDS ORDERED: Lexapro PO SCH (10:00)
[2022-01-13] MEDS ORDERED: Zithromax 500 MG/ 250 ML NaCl Premix 500 MG/250 ML IVPB IV SCH (10:00)
[2022-01-13] MEDS ORDERED: ZOCOR 20MG PO SCH (10:00)
[2022-01-13 11:44] VITALS: O2SAT 95
[2022-01-13 12:34] VITALS: BP 134/77
--- NOTE | 2022-01-13 13:04 | PCM.HP ---
History of Present Illness - Chief Complaint Chief Complaint: copd exacerbation History of Present Illness: is a 66 year old female who predented to ER c/o shortness of breath. Medications & Allergies Home Medications: Home Medication List ALPRAZolam [Alprazolam] 0.5 mg PO TID 05/25/16 [History Confirmed 01/12/22] Albuterol Sulfate [Albuterol Sulfate Hfa] 2 puff IH Q4-6HPRN PRN #1 [id number].[id number] 05/25/16 [Rx Confirmed 01/12/22] Escitalopram Oxalate [Lexapro] 20 mg PO DAILY 05/25/16 [History Confirmed 01/12/22] Ezetimibe 10 mg [Zetia 10 MG] 10 mg PO DAILY 05/25/16 [History Confirmed 01/12/22] Aspirin EC 81 mg [Ecotrin 81 mg] 81 mg PO DAILY 01/12/22 [History Confirmed 01/12/22] Budesonide/Formoterol Fumarate [Budesonide-Formoterol 80-4.5] 2 puff IH BID 01/12/22 [History Confirmed 01/12/22] Pravastatin Sodium 80 mg PO DAILY 01/12/22 [History Confirmed 01/12/22] Allergies/Adverse Reactions: Allergies Allergy/AdvReac Type Severity Reaction Status Date / Time No Known Drug Allergies Allergy Verified 01/12/22 10:57 - Past Medical History Past Medical History: Yes Neurological History: Migraines ENT History: No Pertinent History Cardiac History: High Cholesterol, Other Respiratory History: Bronchitis, COPD Endocrine Medical History: No Pertinent History Musculoskelatal History: No Pertinent History GI Medical History: Hemorrhoids History: No Pertinent History Pyscho-Social History: Anxiety, Depression Reproductive Disorders: Abnormal Uterine Bleeding Comment: aortic stenosis (surgical intervention 11/2021) - Female History Are you now?: No - Past Surgical History Past Surgical History: Yes Neuro Surgical History: No Pertinent History Cardiac History: Valve Replacement Respiratory Surgery: No Pertinent History GI Surgical History: No Pertinent History Genitourinary Surgical Hx: No Pertinent History Musculskeletal Surgical Hx: No Pertinent History Female Surgical History: Hysterectomy Other Surgical History: d & c - Social History Smoking Status: Current some day smoker How long have you smoked: 40 YEARS Exposure to second hand smoke: No Alcohol: None Drug Use: none - Physical Exam Vital Signs: Vital Signs - 24 hr Temp Pulse Resp BP Pulse Ox 01/13/22 12:00 98.1 F 98 H 18 134/77 95 01/13/22 11:40 98 H 16 95 01/13/22 08:00 97.0 F 98 H 16 128/75 94 L 01/13/22 07:06 84 18 94 L 01/13/22 04:00 95.9 F 87 16 119/72 90 L 01/13/22 03:34 84 20 91 L 01/12/22 22:59 96.8 F 88 16 148/71 91 L 01/12/22 22:18 93 H 18 91 L 01/12/22 19:38 96.3 F 95 H 17 127/63 92 L 01/12/22 18:46 94 H 18 89 L 01/12/22 16:00 97.6 F 92 H 18 143/76 90 L 01/12/22 15:41 85 18 93 L 01/12/22 14:03 97.8 F 88 16 141/74 92 L 01/12/22 14:00 97.8 F 91 H 18 141/74 93 L 01/12/22 13:50 93 L Results - Labs Lab/Micro Results: Lab Results-Last 24 Hours 01/12/22 01/12/22 01/13/22 Range/Units 14:39 19:30 04:40 WBC 9.2 (4.0-10.5) x10^3/uL RBC 4.54 (4.1-5.4) x10^6/uL Hgb 13.8 (12.0-16.0) g/dL Hct 42.1 (35-47) % MCV 92.7 (78-100) fL MCH 30.4 (26-32) pg MCHC 32.8 (32-36) g/dL RDW 12.9 (11.5-14.0) % Plt Count 220 (150-450) x10^3/uL MPV 8.9 (7.5-11.0) fL Sodium (137-145) mmol/L Potassium (3.5-5.1) mmol/L Chloride (98-107) mmol/L Carbon Dioxide (22-30) mmol/L Anion Gap (5-15) MEQ/L BUN (7-17) mg/dL Creatinine (0.52-1.04) mg/dL Estimated GFR ML/MIN Glucose (74-106) mg/dL Calcium (8.4-10.2) mg/dL Total Bilirubin (0.2-1.3) mg/dL AST (14-36) U/L ALT (0-35) U/L Alkaline Phosphatase (38-126) U/L Troponin I 0.031 0.019 (0.000-0.034) ng/mL Serum Total Protein (6.3-8.2) g/dL Albumin (3.5-5.0) g/dL 01/13/22 Range/Units 04:40 WBC (4.0-10.5) x10^3/uL RBC (4.1-5.4) x10^6/uL Hgb (12.0-16.0) g/dL Hct (35-47) % MCV (78-100) fL MCH (26-32) pg MCHC (32-36) g/dL RDW (11.5-14.0) % Plt Count (150-450) x10^3/uL MPV (7.5-11.0) fL Sodium 135 L (137-145) mmol/L Potassium 4.2 (3.5-5.1) mmol/L Chloride 100 (98-107) mmol/L Carbon Dioxide 28 (22-30) mmol/L Anion Gap 11.0 (5-15) MEQ/L BUN 14 (7-17) mg/dL Creatinine 0.56 (0.52-1.04) mg/dL Estimated GFR > 60.0 ML/MIN Glucose 170 H (74-106) mg/dL Calcium 9.1 (8.4-10.2) mg/dL Total Bilirubin 0.30 (0.2-1.3) mg/dL AST 30 (14-36) U/L ALT 26 (0-35) U/L Alkaline Phosphatase 91 (38-126) U/L Troponin I (0.000-0.034) ng/mL Serum Total Protein 8.0 (6.3-8.2) g/dL Albumin 4.3 (3.5-5.0) g/dL - Radiology Impressions Radiology Exams & Impressions: Radiology Procedures Category Date Time Status CHEST 1 VIEW (PORTABLE) Stat Exams 12/05/22 11:14 Completed - Other Procedures and Tests Respiratory Therapy 01/12/22 12:04 Respiratory Therapy Assessment DAILY 01/12/22 14:55 Oxygen Nasal Cannula 2 lpm
== END 2022-01-13 14:39 | disposition home or self-care (01) ==
LOC: ED 10:33 → MED SURG 13:40
PROVIDERS: ADMIT Family Medicine; ATTEND Family Medicine
DX: J44.1 Chronic obstructive pulmonary disease with (acute) exacerbation (principal); Z79.899 Other long term (current) drug therapy; Z72.0 Tobacco use; Z20.828 Contact with and (suspected) exposure to other viral communicable diseases; Z99.81 Dependence on supplemental oxygen
CPT/HCPCS: 0241U; 36000; 36415; 71045; 80053; 84484; 85025; 85027; 87040; 93005; 93041; 94640; 94760; 96365; 96367; 96374; 99285; G0008; 90662; 93268; J0456; J0696; J2930; J7609; A9270-GY; G0378

== ENCOUNTER 2022-03-05 15:00 | Emergency (ER) | payer MEDICARE ==
[2022-03-05] MEDS ORDERED: XYLOCAINE 1% HCL 20 ML MDV ONE (15:10)
[2022-03-05 15:17] VITALS: BP 160/89; PULSE 99; O2SAT 92
[2022-03-05] MEDS ORDERED: BACIGUENT PACKET ONE (15:19)
[2022-03-05] MEDS ORDERED: Adacel Vial IM ONE ×2 (15:22→15:26)
--- NOTE | 2022-03-05 15:25 | ERPHSYRPT ---
- History of Present Illness Time Seen by Provider: 03/05/22 15:19 Source: patient Exam Limitations: no limitations Patient Subjective Stated Complaint: laceration to L hand 3rd finger Triage Nursing Assessment: pt to ED c/o cut to middle finger of L hand. pt states she was trying to break apart food and stabbed into finger with point of knife. rates 5/10 pain. no blood thinners. noted approx 1 cm lac to 3rd finger. that is wrapped with bandaid on arrival. bleeding on arrival but stopped bleeding with pressure. Physician History: 66-year-old female presented in the ER with chief complaint of laceration left third digit prior to arrival when she accidentally stabbed her finger with a knife while Frozen ham burgers. She is complaining of mild to moderate pain with movements and slow oozing. Unsure about tetanus status. No injury anywhere else. Timing/Duration: today Quality: painful Severity: mild Location: hands Possible Causes: other Associated Symptoms: denies symptoms Allergies/Adverse Reactions: No Known Drug Allergies Allergy (Verified 03/05/22 15:06) Home Medications: ALPRAZolam [Alprazolam] 0.5 mg PO TID 05/25/16 [History] Escitalopram Oxalate [Lexapro] 20 mg PO DAILY 05/25/16 [History] Ezetimibe 10 mg [Zetia 10 MG] 10 mg PO DAILY 05/25/16 [History] Aspirin EC 81 mg [Ecotrin 81 mg] 81 mg PO DAILY 01/12/22 [History] Budesonide/Formoterol Fumarate [Budesonide-Formoterol 80-4.5] 2 puff IH BID 01/12/22 [History] Pravastatin Sodium 80 mg PO DAILY 01/12/22 [History] Hx Tetanus, Diphtheria Vaccination/Date Given: Yes Hx Influenza Vaccination/Date Given: Yes Hx Pneumococcal Vaccination/Date Given: No Immunizations Up to Date: Yes Travel Risk - International Travel Have you traveled outside of the country in past 3 weeks: No - Coronavirus Screening Are you exhibiting any of the following symptoms?: No Close contact with a COVID-19 positive Pt in past 14-21 Days: No - Vaccine Status Have you recieved a Covid-19 vaccination: Yes Accounting Supervisor: Moderna - Vaccination Dates Date of 2cond Vaccination (if applicable): 06/2020 - Review of Systems Constitutional: No Symptoms Ears, Nose, & Throat: No Symptoms Respiratory: Dyspnea Cardiac: No Symptoms Abdominal/Gastrointestinal: No Symptoms Genitourinary Symptoms: No Symptoms Musculoskeletal: Injury Skin: Skin Lesions Neurological: No Symptoms - Past Medical History Pertinent Past Medical History: Yes Neurological History: Migraines ENT History: No Pertinent History Cardiac History: High Cholesterol, Other Respiratory History: Bronchitis, COPD Endocrine Medical History: No Pertinent History Musculoskeletal History: No Pertinent History GI Medical History: Hemorrhoids History: No Pertinent History Psycho-Social History: Anxiety, Depression Female Reproductive Disorders: Abnormal Uterine Bleeding Other Medical History: aortic stenosis (surgical intervention 11/2021) - Past Surgical History Past Surgical History: Yes Neuro Surgical History: No Pertinent History Cardiac: Valve Replacement Respiratory: No Pertinent History Gastrointestinal: No Pertinent History Genitourinary: No Pertinent History Musculoskeletal: No Pertinent History Female Surgical History: Hysterectomy Other Surgical History: d & c - Social History Smoking Status: Current some day smoker How long have you smoked: 40 YEARS Exposure to second hand smoke: No Drug Use: none Patient Lives Alone: No - Nursing Vital Signs Nursing Vital Signs: Initial Vital Signs Temperature 97.8 F 03/05/22 15:07 Pulse Rate 99 H 03/05/22 15:07 Respiratory Rate 20 03/05/22 15:07 Blood Pressure 160/89 03/05/22 15:07 O2 Sat by Pulse Oximetry 92 L 03/05/22 15:07 Pain Scale Pain Intensity 5 - Physical Exam General Appearance: no apparent distress Ears, Nose, Throat Exam: normal ENT inspection Neck Exam: normal inspection, full range of motion Respiratory Exam: diminished breath sounds Cardiovascular Exam: regular rate/rhythm, normal heart sounds Extremity Exam: normal range of motion, lacerations (1cm laceration left third digit distal middle phalanx volar aspect with intact range of motion at DIP. Distal neurovascular intact. Cap refill less than 3 seconds. Slow oozing. No bony tenderness.) Neurologic Exam: alert, oriented x 3, cooperative Skin Exam: normal color SpO2 Interpretation: normal SpO2: 92 O2 Delivery: Room Air Procedures - Laceration/Wound Repair Left Finger Time of Procedure: 15:14 Wound Location: Left Wound Length (cm): 1 Wound's Depth, Shape: into muscle, linear Wound Explored: clean Irrigated: Yes Hibiclens Prep: Yes Anesthesia: 1% Lidocaine Volume Anesthetic (ccs): 2 Wound Repaired With: sutures Suture Size/Type: 4-0 Number of Sutures: 2 Sterile Dressing Applied?: Yes Splint Applied?: Yes Type of Splint Applied: Aluminum Ordered Tests: Medication Summary Discontinued Medications Generic Name Dose Route Start Last Admin Trade Name Natasha PRN Reason Stop Dose Admin Bacitracin Zinc Confirm 03/05/22 15:19 Bacitracin Packet 1 Each Pckt Administered 03/05/22 15:20 Dose 1 each .ROUTE .STK-MED ONE Lidocaine HCl Confirm 03/05/22 15:10 Lidocaine Hcl 1% 20 Ml Mdv 20 Ml Ml Administered 03/05/22 15:11 Dose 5 ml .ROUTE .STK-MED ONE - Progress Progress: improved Progress Note: 03/05/22 15:25 66-year-old female with a history of COPD on oxygen presented in the ER with chief complaint of accidental laceration/stab wound of to the left third digit while frozen hamburger with a knife. Slow oozing. Intact range of motion at distal interphalangeal joint and intact distal neurovascular. No bony tenderness. Do not think needs imaging. Laceration is repaired. Tetanus is updated. Recommended outpatient follow-up. Discussed signs symptoms of worsening/infection needing return to ER which she seems understanding. Stable for discharge. Counseled pt/family regarding: diagnosis, need for follow-up - Departure Departure Disposition: Home Clinical Impression: Finger laceration Condition: Stable Critical Care Time: No Referrals: TORRIE MURPHY NP [Primary Care Provider] - Follow Up with PCP/3 days Instructions: Laceration Repair With Stitches (DC) Additional Instructions: Take Tylenol as needed for pain. Intermittent ice application. Keep it elevated. Follow-up with primary care for reevaluation. Return to ER for increasing pain swelling redness, bluish discoloration of the fingertip. Suture removal in 10 to 14 days.
== END 2022-03-05 15:35 | disposition home or self-care (01) ==
LOC: ED 15:00
DX: S61.213A Laceration without foreign body of left middle finger without damage to nail, initial encounter (principal); W26.0XXA Contact with knife, initial encounter; Y93.G1 Activity, food preparation and clean up; E78.5 Hyperlipidemia, unspecified; Z79.899 Other long term (current) drug therapy; Z72.0 Tobacco use
CPT/HCPCS: 12001; 90471; 90715; 99282; A9270-GY

== ENCOUNTER 2024-03-27 10:55 | Emergency (ER) | payer MEDICARE ==
--- NOTE | 2024-03-27 11:00 | ERPHSYRPT ---
- History of Present Illness Time Seen by Provider: 03/27/24 11:00 Source: patient, family Exam Limitations: no limitations Physician History: This is a 69-year-old white female patient who was sent to us from [facility] because the patient was seen there with the complaint of cough, lower abdominal pain and urinary frequency. She had an room air oxygen saturation level measured at 85% without her 2 L of oxygen which she wears via nasal cannula primarily at nighttime. Patient has been exposed to flu A. Family member has this diagnosis. Patient denies chest pain. She is a daily smoker of tobacco cigarettes. On arrival to the emergency department, she is wearing 2 L of oxygen and her room air oxygen saturation level is 95%. Patient has a history of hyperlipidemia, anxiety, asthma/COPD and migraine headaches. Patient states that she does not want to be admitted into the hospital. Timing/Duration: day(s) (2) Cough Quality/Degree: mild, dry cough Possible Cause: occasional episodes Modifying Factors: Improves With: coughing Associated Symptoms: cough, wheezing, No shortness of breath, No sore throat Allergies/Adverse Reactions: No Known Drug Allergies Allergy (Verified 03/27/24 11:09) Home Medications: ALPRAZolam [Alprazolam] 0.5 mg PO TID 05/25/16 [History] Escitalopram Oxalate [Lexapro] 20 mg PO DAILY 05/25/16 [History] Ezetimibe 10 mg [Zetia 10 MG] 10 mg PO DAILY 05/25/16 [History] Aspirin EC 81 mg [Ecotrin 81 mg] 81 mg PO DAILY 01/12/22 [History] Pravastatin Sodium 80 mg PO DAILY 01/12/22 [History] Fluticasone/Umeclidin/Vilanter [Trelegy Ellipta 100-62.5-25] 1 each IH DAILY 03/27/24 [History] Hx Tetanus, Diphtheria Vaccination/Date Given: Yes Hx Influenza Vaccination/Date Given: Yes Hx Pneumococcal Vaccination/Date Given: No Travel Risk - International Travel Have you traveled outside of the country in past 3 weeks: No - Emerging Infectious Disease Symptoms: Cough: New Onset, Shortness of Breath - Review of Systems Constitutional: No Symptoms Eyes: No Symptoms Ears, Nose, & Throat: No Symptoms Respiratory: Cough Cardiac: No Symptoms Abdominal/Gastrointestinal: No Symptoms Genitourinary Symptoms: No Symptoms Musculoskeletal: No Symptoms Skin: No Symptoms Neurological: No Symptoms Psychological: No Symptoms Endocrine: No Symptoms Hematologic/Lymphatic: No Symptoms Immunological/Allergic: No Symptoms All Other Systems: Reviewed and Negative - Past Medical History Pertinent Past Medical History: Yes Neurological History: Migraines ENT History: No Pertinent History Cardiac History: High Cholesterol, Other Respiratory History: Bronchitis, COPD Endocrine Medical History: No Pertinent History Musculoskeletal History: No Pertinent History GI Medical History: Hemorrhoids History: No Pertinent History Psycho-Social History: Anxiety, Depression Female Reproductive Disorders: Abnormal Uterine Bleeding Other Medical History: aortic stenosis (surgical intervention 11/2021) - Past Surgical History Past Surgical History: Yes Neuro Surgical History: No Pertinent History Cardiac: Valve Replacement Respiratory: No Pertinent History Gastrointestinal: No Pertinent History Genitourinary: No Pertinent History Musculoskeletal: No Pertinent History Female Surgical History: Hysterectomy Other Surgical History: d & c - Social History Smoking Status: Current some day smoker How long have you smoked: 40 YEARS Exposure to second hand smoke: No Drug Use: none Patient Lives Alone: No - Nursing Vital Signs Nursing Vital Signs: Initial Vital Signs Temperature 99.6 F 03/27/24 10:59 Pulse Rate 105 H 03/27/24 10:59 Blood Pressure 115/70 03/27/24 10:59 O2 Sat by Pulse Oximetry 93 L 03/27/24 10:59 Pain Scale Pain Intensity 8 - Physical Exam General Appearance: no apparent distress, alert Eye Exam: PERRL/EOMI, eyes nml inspection Ears, Nose, Throat Exam: normal ENT inspection, moist mucous membranes Neck Exam: normal inspection, non-tender, supple, full range of motion Respiratory Exam: airway intact, wheezing (Mild expiratory wheezing left lung field), No chest tenderness, No respiratory distress Cardiovascular Exam: regular rate/rhythm, normal heart sounds, normal peripheral pulses Gastrointestinal/Abdomen Exam: soft, normal bowel sounds, No tenderness Pelvic Exam: not done Rectal Exam: not done Back Exam: normal inspection, normal range of motion, No CVA tenderness, No vertebral tenderness Extremity Exam: normal inspection, normal range of motion, pelvis stable Neurologic Exam: alert, oriented x 3, cooperative, 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, nml cerebellar function, nml station & gait, sensation nml Skin Exam: normal color, warm, dry Lymphatic Exam: No adenopathy SpO2 Interpretation: normal O2 Delivery: Room Air - Course Nursing assessment & vital signs reviewed: Yes Ordered Tests: Active Orders 24 hr Category Date Time Status CHEST 1 VIEW (PORTABLE) Stat Exams 03/27/24 11:12 Completed AMYLASE Stat Lab 03/27/24 12:10 Completed BLOOD CULTURE Stat Lab 03/27/24 12:20 Received CBC W DIFF Stat Lab 03/27/24 11:11 Completed CMP Stat Lab 03/27/24 12:10 Completed LIPASE Stat Lab 03/27/24 12:10 Completed MAGNESIUM Stat Lab 03/27/24 12:10 Completed NT PRO BNPII Stat Lab 03/27/24 12:10 Completed TROPONIN Q4H Lab 03/27/24 12:10 Completed TROPONIN Q4H Lab 03/27/24 15:15 Ordered TROPONIN Q4H Lab 03/27/24 19:15 Ordered UA W/RFX UR CULTURE Stat Lab 03/27/24 13:48 Completed Respiratory Therapy Assessment DAILY RT 03/27/24 11:44 Active Medication Summary Discontinued Medications Generic Name Dose Route Start Last Admin Trade Name Freq PRN Reason Stop Dose Admin Albuterol/Ipratropium Confirm 03/27/24 11:34 Ipratropium/Albuterol Sulfate 3 Ml Ampul.Neb Administered 03/27/24 11:35 Dose 3 ml IH .STK-MED ONE Albuterol/Ipratropium 3 ml 03/27/24 11:44 03/27/24 11:45 Ipratropium/Albuterol Sulfate 3 Ml Ampul.Neb IH 03/27/24 11:45 3 ml STAT ONE Administration Oseltamivir Phosphate 75 mg 03/27/24 13:28 03/27/24 13:39 Oseltamivir 75 Mg Cap PO 03/27/24 13:29 75 mg STAT ONE Administration Oseltamivir Phosphate Confirm 03/27/24 13:39 Oseltamivir 75 Mg Cap Administered 03/27/24 13:40 Dose 75 mg PO .STK-MED ONE Lab/Rad Data: Laboratory Result Diagrams 03/27/24 11:11 03/27/24 12:10 Laboratory Results 03/27/24 03/27/24 03/27/24 Range/Units 13:48 12:10 12:10 WBC (3.98-10.04) x10^3/uL RBC (3.93-5.22) x10^6/uL Hgb (11.2-15.7) g/dL Hct (34.1-44.9) % MCV (79.4-94.8) fL MCH (25.6-32.2) pg MCHC (32.2-35.5) g/dL RDW (11.7-14.4) % Plt Count (182-369) x10^3/uL MPV (9.4-12.3) fL Gran % (34.0-71.1) % Immature Gran % (Auto) (0.001-0.429) % Nucleat RBC Rel Count (0.00-0.2) % Eos # (Auto) (0.04-0.36) x10^3/uL Immature Gran # (Auto) (0.001-0.031) x10^3u/L Absolute Lymphs (auto) (1.18-3.74) x10^3/uL Absolute Monos (auto) (0.24-0.86) x10^3/uL Absolute Nucleated RBC (0.00-0.012) x10^3u/L Lymphocytes % (19.3-51.7) % Monocytes % (4.7-12.5) % Eosinophils % (0.7-5.8) % Basophils % (0.1-1.2) % Absolute Granulocytes (1.56-6.13) x10^3/uL Basophils # (0.01-0.08) x10^3/uL Sodium (135-145) mmol/L Potassium (3.5-5.1) mmol/L Chloride (98-107) mmol/L Carbon Dioxide (22-30) mmol/L Anion Gap (5-15) MEQ/L BUN (7-17) mg/dL Creatinine (0.52-1.04) mg/dL Estimated GFR ML/MIN Glucose (74-106) mg/dL Calcium (8.4-10.2) mg/dL Magnesium (1.6-2.3) mg/dL Total Bilirubin (0.2-1.3) mg/dL AST (14-36) U/L ALT (0-35) U/L Alkaline Phosphatase (38-126) U/L Troponin I < 0.012 (0.000-0.033) ng/mL NT-Pro-B Natriuret Pep (<300) pg/mL Serum Total Protein (6.3-8.2) g/dL Albumin (3.5-5.0) g/dL Amylase (30-110) U/L Lipase (23-300) U/L Urine Color Dark Yellow A (Yellow) Urine Appearance Cloudy A (Clear) Urine pH 5.0 (4.6-8.0) Ur Specific [place] >=1.030 A (1.005-1.030) Urine Protein 100 A (Negative) Urine Glucose (UA) Negative (Negative) mg/dL Urine Ketones Trace A (Negative) Urine Blood Trace (Negative) Urine Nitrite Negative (Negative) Urine Bilirubin Small A (Negative) Urine Urobilinogen 1.0 A (0.2) mg/dL Ur Leukocyte Esterase Negative (Negative) U Hyaline Cast (Auto) 20-50 (0-2) /LPF Urine Microscopic RBC 6-10 A (0-5) /HPF Urine Microscopic WBC 0-2 (0-5) /HPF Ur Epithelial Cells Moderate A (None Seen) /HPF Urine Bacteria None Seen (None Seen) /HPF Urine Culture Reflexed NO (NO) Influenza Type A Ag POSITIVE A (NEGATIVE) Influenza Type B Ag NEGATIVE (NEGATIVE) RSV (PCR) NEGATIVE (NEGATIVE) SARS-CoV-2 (PCR) NEGATIVE (NEGATIVE) 03/27/24 03/27/24 Range/Units 12:10 11:11 WBC 9.9 (3.98-10.04) x10^3/uL RBC 4.68 (3.93-5.22) x10^6/uL Hgb 14.4 (11.2-15.7) g/dL Hct 44.3 (34.1-44.9) % MCV 94.7 (79.4-94.8) fL MCH 30.8 (25.6-32.2) pg MCHC 32.5 (32.2-35.5) g/dL RDW 13.9 (11.7-14.4) % Plt Count 134 L (182-369) x10^3/uL MPV 8.4 L (9.4-12.3) fL Gran % 75.9 H (34.0-71.1) % Immature Gran % (Auto) 0.5 H (0.001-0.429) % Nucleat RBC Rel Count 0.0 (0.00-0.2) % Eos # (Auto) 0 L (0.04-0.36) x10^3/uL Immature Gran # (Auto) 0.05 H (0.001-0.031) x10^3u/L Absolute Lymphs (auto) 1.68 (1.18-3.74) x10^3/uL Absolute Monos (auto) 0.63 (0.24-0.86) x10^3/uL Absolute Nucleated RBC 0.00 (0.00-0.012) x10^3u/L Lymphocytes % 17.0 L (19.3-51.7) % Monocytes % 6.4 (4.7-12.5) % Eosinophils % 0.0 L (0.7-5.8) % Basophils % 0.2 (0.1-1.2) % Absolute Granulocytes 7.52 H (1.56-6.13) x10^3/uL Basophils # 0.02 (0.01-0.08) x10^3/uL Sodium 139 (135-145) mmol/L Potassium 4.4 (3.5-5.1) mmol/L Chloride 100 (98-107) mmol/L Carbon Dioxide 26 (22-30) mmol/L Anion Gap 17.3 H (5-15) MEQ/L BUN 27 H (7-17) mg/dL Creatinine 1.24 H (0.52-1.04) mg/dL Estimated GFR 46.8 ML/MIN Glucose 151 H (74-106) mg/dL Calcium 8.6 (8.4-10.2) mg/dL Magnesium 1.9 (1.6-2.3) mg/dL Total Bilirubin 0.40 (0.2-1.3) mg/dL AST 51 H (14-36) U/L ALT 34 (0-35) U/L Alkaline Phosphatase 68 (38-126) U/L Troponin I (0.000-0.033) ng/mL NT-Pro-B Natriuret Pep 485 (<300) pg/mL Serum Total Protein 7.3 (6.3-8.2) g/dL Albumin 4.5 (3.5-5.0) g/dL Amylase 43 (30-110) U/L Lipase 56 (23-300) U/L Urine Color (Yellow) Urine Appearance (Clear) Urine pH (4.6-8.0) Ur Specific [place] (1.005-1.030) Urine Protein (Negative) Urine Glucose (UA) (Negative) mg/dL Urine Ketones (Negative) Urine Blood (Negative) Urine Nitrite (Negative) Urine Bilirubin (Negative) Urine Urobilinogen (0.2) mg/dL Ur Leukocyte Esterase (Negative) U Hyaline Cast (Auto) (0-2) /LPF Urine Microscopic RBC (0-5) /HPF Urine Microscopic WBC (0-5) /HPF Ur Epithelial Cells (None Seen) /HPF Urine Bacteria (None Seen) /HPF Urine Culture Reflexed (NO) Influenza Type A Ag (NEGATIVE) Influenza Type B Ag (NEGATIVE) RSV (PCR) (NEGATIVE) SARS-CoV-2 (PCR) (NEGATIVE) - Progress Progress: improved, re-examined Air Movement: good Progress Note: 03/27/24 11:49 My medical decision making and the assignment of moderate complexity to this patient's medical issue today is based on review of the patient's past medical history, review the patient's medication list, review the patient drug allergy list, history present illness and physical findings on examination. The workup in this patient includes placement of an intravenous line, chest x-ray, twelve- lead EKG, BNP, troponin level, urinalysis, CT scan of the abdomen pelvis without contrast. Differential diagnosis includes but is not limited to viral illness, urinary tract infection, CHF, myocardial infarction, arrhythmia, acute intra- abdominal/pelvic abnormality 03/27/24 11:56 The chest x-ray final report was interpreted by the radiologist and I reviewed the impression. Impression states no acute findings. There are chronic findings present. 03/27/24 14:30 Interpreted the patient's laboratory data results. Based on the laboratory data results, the patient does have influenza A. Blood Culture(s) Obtained: No Antibiotics given: No Counseled pt/family regarding: lab results, diagnosis, rad results Medical Desision Making - Independent Historian Additional History obtained from: Spouse - Diagnostic Testing Diagnostic test were ordered, analyzed, and reviewed by me: Yes Radiological Interpretation: Reviewed by me, Teleradiologist Report - Risk of complications The pt has a mod risk of morbidity or mortality based on: Need for prescription drug management - Departure Departure Disposition: Home Clinical Impression: Influenza A H1N1 infection Condition: Stable Critical Care Time: No Referrals: TORRIE MURPHY NP [Primary Care Provider] - Follow up/PCP as directed Additional Instructions: Drink plenty of fluids. Take your Tamiflu as prescribed. Use Tylenol and ibuprofen if there are no contraindications for fever and pain control. Call your primary care provider today, 03/27/2024 to make arranges for follow-up appointment for further evaluation and management Prescriptions: Oseltamivir 75 mg [Tamiflu 75MG Capsule] 75 mg PO BID #10 cap
[2024-03-27 11:09] VITALS: TEMP 99.6
[2024-03-27] MEDS ORDERED: DUONEB 0.5-3 MG/3 ml Neb IH ONE (11:34)
--- NOTE | 2024-03-27 11:41 | XRAY ---
Indication: Cough. Comparison: April 28, 2022. Portable chest demonstrates new minimal left base subsegmental atelectasis/scarring. Stable tiny bilateral calcified granulomas. No focal infiltrate, consolidation, or large effusion. Heart not enlarged again with cardiac valve replacement. Bony thorax intact again with osteopenia and mild degenerative changes. Impression: Nonacute chest with chronic features.
[2024-03-27] MEDS: DUONEB 0.5-3 MG/3 ml Neb IH ONE (11:45)
[2024-03-27 11:51] VITALS: PULSE 100; RESP 20
[2024-03-27 12:27] LABS: Absolute Neutrophil Ct (ANC) 7.52 x10^3/uL (1.56-6.13); BASOPHIL % 0.2 % (0.1-1.2); Basophil (Absolute #) 0.02 x10^3/uL (0.01-0.08); Eosinophil (Absolute #) 0 x10^3/uL (0.04-0.36); Hematocrit 44.3 % (34.1-44.9); Hemoglobin 14.4 g/dL (11.2-15.7); IMMATURE GRAN # 0.05 x10^3u/L (0.001-0.031); IMMATURE GRAN % 0.5 % (0.001-0.429); Lymphocyte (Absolute #) 1.68 x10^3/uL (1.18-3.74); Mean Cell Volume 94.7 fL (79.4-94.8); Mean Corpuscular Hemoglobin 30.8 pg (25.6-32.2); Mean Corpuscular Hgb Concent. 32.5 g/dL (32.2-35.5); Mean Platelet Volume 8.4 fL (9.4-12.3); Monocyte (Absolute #) 0.63 x10^3/uL (0.24-0.86); Monocytes % 6.4 % (4.7-12.5); Neutrophil % 75.9 % (34.0-71.1); Platelet Count 134 x10^3/uL (182-369); Red Blood Count 4.68 x10^6/uL (3.93-5.22); Red Cell Distribution Width 13.9 % (11.7-14.4); White Blood Count 9.9 x10^3/uL (3.98-10.04)
[2024-03-27 13:03] LABS: INFLUENZA B NEGATIVE (NEGATIVE); RESPIRATORY SYNCTIAL VIRUS NEGATIVE (NEGATIVE); SARS-CoV-2 Xpert Express NEGATIVE (NEGATIVE)
[2024-03-27 13:20] LABS: ALBUMIN 4.5 g/dL (3.5-5.0); ANION GAP 17.3 MEQ/L (5-15); BILIRUBIN,TOTAL 0.4 mg/dL (0.2-1.3); Calcium 8.6 mg/dL (8.4-10.2); Creatinine 1 1.24 mg/dL (0.52-1.04); EST GLOMERULAR FILTRATION RATE 46.8 ML/MIN; MAGNESIUM 1.9 mg/dL (1.6-2.3); Potassium 4.4 mmol/L (3.5-5.1); Total Protein 7.3 g/dL (6.3-8.2)
[2024-03-27 13:25] LABS: INFLUENZA A POSITIVE (NEGATIVE)
[2024-03-27] MEDS: Tamiflu 75MG Capsule PO ONE (13:39)
[2024-03-27] MEDS ORDERED: Tamiflu 75MG Capsule PO ONE (13:39)
[2024-03-27 13:49] VITALS: BP 108/62; O2SAT 96
[2024-03-27 14:06] LABS: Appearance Cloudy (Clear); Bacteria None Seen /HPF (None Seen); Bilirubin Small (Negative); Blood Trace (Negative); Epithelial Cells Moderate /HPF (None Seen); Glucose, Urine Negative (Negative); Ketones Trace (Negative); Leukocyte Esterase Negative (Negative); Nitrite Negative (Negative); Protein,Urine Dip 100 (Negative); Specific Gravity >=1.030 (1.005-1.030); WBC 0-2 /HPF (0-5)
[2024-03-27 14:16] LABS: Hyaline Casts 20-50 /LPF (0-2)
== END 2024-03-27 14:42 | disposition home or self-care (01) ==
LOC: ED 10:55
DX: J10.1 Influenza due to other identified influenza virus with other respiratory manifestations (principal); R05.9 Cough, unspecified; R10.30 Lower abdominal pain, unspecified; E78.5 Hyperlipidemia, unspecified; Z79.899 Other long term (current) drug therapy; Z72.0 Tobacco use
CPT/HCPCS: 0241U; 36415; 71045; 80053; 81001; 82150; 83690; 83735; 83880; 84484; 85025; 87040; 94640; 99284; 99283; A9270-GY